=== PATIENT | male | born 1975 | race American Indian/Alaskan Native ===

== ENCOUNTER 2018-04-02 06:59 | Emergency (ER) | payer SELFPAY ==
[2018-04-02 07:24] VITALS: BP 133/91
[2018-04-02] MEDS ORDERED: IBUPROFEN PO ONE (07:49)
[2018-04-02] MEDS ORDERED: TRIPLE ANTIBIOTIC TP ONE (07:49)
--- NOTE | 2018-04-02 07:49 | Emergency Department Report ---
ED Laceration HPI - HPI Chief Complaint: Wound/Laceration Stated Complaint: LACERATION RIGHT THUMB Time Seen by Provider: 04/02/18 07:43 Occurred When: Today Location: Upper Extremity Severity: mild Tetanus Status: Up to Date Laceration Symptoms: Yes Pain, No Foreign Body Sensation, No Numbness, No Weakness Other History: Patient is a 42-year-old -[place] male who comes to the ER today with an abrasion of his right hand at the base of his thumb. He hurt himself at work using a razor. It is not a laceration requiring suturing. It is an abrasion of the top layers of skin ED Review of Systems ROS: Stated complaint: LACERATION RIGHT THUMB Other details as noted in HPI Comment: All other systems reviewed and negative Constitutional: denies: chills ENT: denies: as per HPI Respiratory: denies: orthopnea Endocrine: denies: no symptoms reported Skin: as per HPI, lesions Neurological: denies: headache ED Past Medical Hx - Past Medical History Previous Medical History?: Yes Hx Hypertension: Yes - Surgical History Past Surgical History?: No - Social History Smoking Status: Current Every Day Smoker Substance Use Type: None Laceration Physical Exam - Exam General: Vital signs noted. No distress. Alert and acting appropriately. Laceration Location: Upper Extremity Laceration Exam: Yes Normal Distal CMS, No Foreign Body, No Exposed Tendon, Vessel, or Nerve, No Tendon Injury ED Course Vital Signs 04/02/18 07:15 Temperature 97.6 F Pulse Rate 57 L Respiratory 20 Rate Blood Pressure 133/91 O2 Sat by Pulse 99 Oximetry ED Medical Decision Making - Medical Decision Making WOUND CARE FOR ABRASION TDAP IS UP TO DATE SUPERFICIAL REQUIRING NO SUTURING NO ANTIBIOTICS REQUIRED - Differential Diagnosis SIMPLE WOUND Critical care attestation.: If time is entered above; I have spent that time in minutes in the direct care of this critically ill patient, excluding procedure time. ED Disposition Clinical Impression: Abrasion Disposition: DC-01 TO HOME OR SELFCARE Is pt being admited?: No Does the pt Need Aspirin: No Condition: Stable Instructions: Abrasion (ED) Additional Instructions: KEEP CLEAN AND DRY KEEP COVERED WHEN AT WORK WASH WITH SOAP AND WATER MOTRIN OR TYLENOL FOR PAIN Referrals: KAMILAH HECK DO [Staff Physician] - 3-5 Days Time of Disposition: 07:48
== END 2018-04-02 08:32 | disposition home or self-care (01) ==
LOC: ED 06:59
DX: S60.511A Abrasion of right hand, initial encounter (principal); I10 Essential (primary) hypertension; F17.200 Nicotine dependence, unspecified, uncomplicated; X58.XXXA Exposure to other specified factors, initial encounter; Y93.89 Activity, other specified; Y92.89 Other specified places as the place of occurrence of the external cause; Y99.8 Other external cause status
CPT/HCPCS: 99282; A6250